=== PATIENT | female | born 1970 | race African-American/Black ===

== ENCOUNTER 2017-06-25 18:32 | Emergency (ER) | payer SELFPAY ==
[~2017-06-25] VITALS: Ht 162.6 cm; Wt 111.8 kg
[~2017-06-25 18:32] MED LIST: ACCU-CHEK AVIVAP100 XX; BYETTA10 MC1 SC; DIFLUCAN150 MG OR; GLIPIZIDE10 M1 PO; GLUCOTROL10 MG PO; HUMALOG100 UNIT/M SC; HUMULIN 70/30 SC; HYDROCHLOROT25 MG PO; INSULIN SYR1 ML/31 G SC; JANUVIA100 MG PO; LANTUS100 MG/ML SC; LEVEMIR1000 UNITS SC; LIPITOR10 MG PO; MOTRIN800 MG PO; SPIRONOLACT50 M1 PO; VENLAFAXINE HC150 M1 PO
[2017-06-25] MEDS ORDERED: AMOXICILLIN500 MG PO (20:43)
[2017-06-25] MEDS ORDERED: PERCOCET 5/325M1 TAB PO (20:43)
[2017-06-25 20:45] VITALS: BP 169/89
== END 2017-06-25 20:53 | disposition home or self-care (01) | DRG 159 ==
LOC: ED 18:32
DX: K08.89 Other specified disorders of teeth and supporting structures (principal); I10 Essential (primary) hypertension; K02.9 Dental caries, unspecified; S02.5XXA Fracture of tooth (traumatic), initial encounter for closed fracture